=== PATIENT | female | born 1980 | race Caucasian/White ===

== ENCOUNTER 2016-12-11 15:42 | Emergency (ER) | payer SELFPAY ==
[~2016-12-11] VITALS: Ht 167.6 cm; Wt 56.8 kg
[~2016-12-11 15:42] MED LIST: KLONOPIN0.5 M1 PO; ZOLOFT50 MG PO
[2016-12-11] MEDS ORDERED: PREDNISONE20 MG PO (17:23)
[2016-12-11] MEDS ORDERED: MOBIC15 MG PO (17:23)
[2016-12-11] MEDS ORDERED: LIDODERM 5% P1 PATCH TD (17:24)
[2016-12-11] MEDS ORDERED: ULTRACET1 TABLET PO (17:24)
[2016-12-11 17:28] VITALS: BP 00/0
== END 2016-12-11 17:46 | disposition home or self-care (01) ==
LOC: EME 15:42 → RME 15:42
DX: S39.92XA Unspecified injury of lower back, initial encounter (principal); M54.32 Sciatica, left side; X50.0XXA Overexertion from strenuous movement or load, initial encounter; Y93.89 Activity, other specified
CPT/HCPCS: 72100; 99281; 99285; J3010; J7512